=== PATIENT | female | born 1930 | race Caucasian/White ===

== ENCOUNTER 2016-07-28 08:55 | Day surgery (SDC) | payer MEDICARE, OTHER ==
--- NOTE | ~2016-07-28 | EGD ---
EGD REPORT [facility] [address] [id number] NAME: CHIKA PALACIOS : [birth year] STATUS : REG [facility]#: [id number] AGE: 86 ADM/REG DATE : 07/28/16 MR#: [id number] REPORT SERV DATE: 07/28/16 DICTATED BY: ROHIT PEARSON DATE: 07/28/16 REPORT STATUS : Draft [facility]: [facility] DATE: 07/28/16 Endoscopy Center Patient Name: Chika Palacios Date of : 1930 Attending MD: ROHIT PEARSON, Procedure Date No Time: 07/28/2016 Procedure: Colonoscopy Indications: Heme positive stool Referring MD: SOLIS MONTES DE OCA Medicines: Monitored Anesthesia Care Complications: No immediate complications. Estimated blood loss: None. Procedure: Pre-Anesthesia Assessment: - ASA Grade Assessment: III - A patient with severe systemic disease. After I obtained informed consent, the scope was passed under direct vision. Throughout the procedure, the patient's blood pressure, pulse, and oxygen saturations were monitored continuously. The CF [id number] was introduced through the anus and advanced to the cecum, identified by appendiceal orifice and ileocecal valve. The colonoscopy was performed without difficulty. The patient tolerated the procedure well. The quality of the bowel preparation was good. Findings: The perianal and digital rectal examinations were normal. A sessile polyp was found in the transverse colon. The polyp was 3 mm in size. The polyp was removed with a cold biopsy forceps. Resection and retrieval were complete. Verification of patient identification for the specimen was done. Estimated blood loss was minimal. A sessile polyp was found in the ascending colon. The polyp was 5 mm in size. The polyp was removed with a cold snare. Resection and retrieval were complete. Verification of patient identification for the specimen was done. Estimated blood loss was minimal. Internal hemorrhoids were found, and they were Grade I (internal hemorrhoids that do not prolapse). The exam was otherwise without abnormality. Impression: - One 3 mm polyp in the transverse colon. Resected and retrieved. - One 5 mm polyp in the ascending colon. Resected and retrieved. - Internal hemorrhoids. - The examination was otherwise normal. EGD REPORT [address] [address] NAME: CHIKA PALACIOS : [birth year] [place]US : [place] [facility] [place] [id number] AGE: 86 ADM/REG DATE : 07/28/16 MR#: [id number] REPORT SERV DATE: 07/28/16 DICTATED BY: ROHIT PEARSON DATE: 07/28/16 REPORT STATUS : Draft TRANSCRIBED BY: [employer] DATE: 07/28/16 Recommendation: - Patient has a contact number available for emergencies. The signs and symptoms of potential delayed complications were discussed with the patient. Return to normal activities tomorrow. Written discharge instructions were provided to the patient. - Return to previous diet. - Continue present medications. - Await pathology results. - Repeat colonoscopy for surveillance based on pathology results. Procedure Code(s): --- Professional --- 53078, Colonoscopy, flexible, proximal to splenic flexure; with removal of tumor(s), polyp(s), or other lesion(s) by snare technique 68341, 59, Colonoscopy, flexible, proximal to splenic flexure; with biopsy, single or multiple Diagnosis Code(s): --- Professional --- D12.2, Benign neoplasm of ascending colon D12.3, Benign neoplasm of transverse colon K64.0, First degree hemorrhoids R19.5, Other fecal abnormalities CPT copyright 2013 [employer]. All rights reserved. The codes documented in this report are preliminary and upon ux research associate review may be revised to meet current compliance requirements. ROHIT MICHEL, 07/28/2016 11:33 AM Number of Addenda: 0 Note Initiated On: 07/28/2016 10:58 AM Scope Withdrawal Time 0 hours 17 minutes 24 seconds [address] [id number]
[~2016-07-28 08:55] MED LIST: ASA5GR PO; ASAB PO; ASABAYER PO; ATV.5 PO; C25; CALTRA600D PO; FISH OIL1200 MG PO; GLUCPH PO; HYDROCHLOROT25 MG PO; HYGROTON 25 MG25 MG PO; KLOR-CON 1010 MEQ PO; LISINOPRIL40 MG PO; NITR; NITROSTAT0.4 MG SL; NORV25 PO; NORV5 PO; OYST-CAL500 MG PO; PCET PO; POTA; PRAVAC PO; PREMARIN; PROAIR HFA INH; ULTRAM50 PO; VITAMIN B-121000 MC1 SL; VITAMIN B-625 MG OR; VITC500 PO; ZYRTEC ALLGY10 MG PO
== END 2016-07-28 23:59 | disposition home health service (06) ==
LOC: DMU 08:55
PROVIDERS: Internal Medicine Gastroenterology
PROC: 0DBL8ZX Excision of Transverse Colon, Via Natural or Artificial Opening Endoscopic, Diagnostic (ICD-10-PCS; principal; 2016-07-28 09:30)
PROC: 0DBK8ZZ Excision of Ascending Colon, Via Natural or Artificial Opening Endoscopic (ICD-10-PCS; 2016-07-28 09:30)
DX: D12.2 Benign neoplasm of ascending colon (principal); K63.5 Polyp of colon; K64.0 First degree hemorrhoids; I10 Essential (primary) hypertension; I25.10 Atherosclerotic heart disease of native coronary artery without angina pectoris; E78.00 Pure hypercholesterolemia, unspecified; M19.90 Unspecified osteoarthritis, unspecified site; J45.909 Unspecified asthma, uncomplicated; Z88.8 Allergy status to other drugs, medicaments and biological substances; Z95.1 Presence of aortocoronary bypass graft
CPT/HCPCS: 88305